=== PATIENT | female | born 1995 | race Caucasian/White ===

== ENCOUNTER 2017-07-15 11:01 | Emergency (ER) | payer OTHER ==
[~2017-07-15] VITALS: Ht 160 cm; Wt 55.4 kg
[2017-07-15] MEDS ORDERED: MOTRIN800 MG PO (12:09)
[2017-07-15] MEDS ORDERED: DEPAKOTE500 MG PO (12:11)
[2017-07-15 12:16] VITALS: BP 111/65
== END 2017-07-15 12:15 | disposition home or self-care (01) | DRG 313 ==
LOC: ED 11:01
DX: R07.89 Other chest pain (principal)